=== PATIENT | female | born 1985 | race Caucasian/White ===

== ENCOUNTER → 2021-05-14 | Outpatient (CLI) | payer OTHER ==
--- NOTE | 2021-05-14 13:07 | KCIC ---
EXAMINATION: MRI RIGHT SHOULDER WITHOUT IV CONTRAST CLINICAL HISTORY: Chronic right shoulder pain x1 year. TECHNIQUE: Multiplanar multisequential images obtained through the shoulder without intravenous contr ast. COMPARISON: None FINDINGS: TENDONS: - Supraspinatus: Within normal limits. - Infraspinatus: Within normal limits. - Subscapularis: Low-grade interstitial tearing in the superior fibers near the myotendinous junction . - Teres Minor: Appears grossly intact, but there is peritendinous edema extending proximally to the m yotendinous junction. - Biceps Tendon: Long head biceps tendon intact and appropriately located. MUSCLES: Muscle bulk and signal intensity otherwise within normal limits. LABRUM: Findings most consistent with a prominent superior sublabial sulcus/foramen, however, there i s also a small focus of increased intrinsic signal in the posterior superior labrum at 11:30 position (series 6 image 11, series 5 image 10) which may indicate a component of labral tearing. GLENOHUMERAL JOINT: - Joint Fluid: No joint effusion or synovitis. - Cartilage: Within normal limits. ACROMIOCLAVICULAR JOINT: Within normal limits. BONES/MARROW: No evidence of acute fracture or suspicious marrow replacing process. Subcortical marro w edema/cystic changes at the teres minor insertion, possibly related to chronic reactive changes. IMPRESSION: Low-grade interstitial tearing in the subscapularis tendon and low-grade teres minor myotendinous str ain. No full-thickness rotator cuff tear. Prominent superior sublabial sulcus/foramen with possible superimposed labral tearing as describeddorinda clinically. Electronically signed by: Pablo Lpoez DO (05/14/2021 1:05 PM) [id number]
== END ==
LOC: KCIC MRI 10:43
PROVIDERS: ATTEND Nurse Practitioner Family
DX: S46.011A Strain of muscle(s) and tendon(s) of the rotator cuff of right shoulder, initial encounter (principal); X58.XXXA Exposure to other specified factors, initial encounter; Y93.89 Activity, other specified; Y92.89 Other specified places as the place of occurrence of the external cause; Y99.8 Other external cause status
CPT/HCPCS: 73221

== ENCOUNTER → 2021-07-06 | Outpatient (CLI) | payer OTHER ==
[~2021-07-06] MED LIST: GADOTERATE 5 MMOL/10ML VIAL. INT ART ONE; IOHEXOL 300 MG/ML 50 ML VIAL. INT ART ONE; LIDOCAINE 1% Multi-Dose 20 ML VIAL. ID ONE
--- NOTE | 2021-07-06 16:58 | KCIC ---
EXAM: Right shoulder joint injection WITH Fluoroscopic guidance DATE: 07/06/2021 2:12 PM CLINICAL HISTORY: Reason: RIGHT SHOULDER PAIN COMPARISON: None pertinent TECHNIQUE: The patient was informed of the indications and alternatives for this procedure as well as risks and benefits. No immediate contraindication identified. The patient provided informed, written consent. Laterality was confirmed by the entire team following a time out. Following initial Right shoulder joint localization, a suitable area was sterilely prepped and draped . Local anesthesia was administered with 1% xylocaine. With intermittent fluoroscopic observation, a 22-gauge spinal needle was advanced into the Right shoulder joint sheath/capsule with confirmation of intra-synovial position with infusion of less than 1 cc iodinated contrast. Subsequent infusion 12 c c solution containing 10 cc saline, 5 cc lidocaine 1%, 5 cc Isovue and 0.1 cc gadolinium. Hemostasis with local pressure. Local clinical exam negative for immediate complication. Patient informed re local potential signs or symptoms that may indicate need to return to ER/Ordering physician for further evaluation. Patient informed re precautionary measures after intra-synovial in jection of anesthetic. Patient expressed understanding. Performing Physicians: Dr. Antoine Burkett Blood Loss: 0 cc Total Fluoroscopy time: 5 seconds Total spot images taken: 0 IMPRESSION: Successful intra-synovial injection Right shoulder joint pre-MRI with gadolinium contrast per clinica l request. Electronically signed by: Esteban Burkett MD (07/06/2021 4:56 PM) [id number]
--- NOTE | 2021-07-06 20:15 | KCIC ---
EXAM: MRI arthrogram right shoulder DATE: 07/06/2021 2:12 PM COMPARISON: None INDICATION: Reason: RIGHT SHOULDER PAIN TECHNIQUE: Multiplanar, multisequence MRI arthrogram of the right shoulder was performed following th e administration of intra-articular gadolinium contrast. FINDINGS: Iatrogenic distention of the right glenohumeral joint with gadolinium contrast. Type II acromion. No os acromiale. Subacromial-subdeltoid bursal edema with gadolinium characteristics. There is moderate edema within the teres minor muscle belly with associated edema within the greater tuberosity. No discrete rotator cuff tear is seen. Rotator cuff muscle bulk is normal without fatty a trophy. Contrast extends from the biceps tendon anchor to the posterior labrum/9:00 position. Articular carti magalys is preserved. Long head biceps tendon is intact. No acute fracture or osteonecrosis. IMPRESSION: 1. Labral tear extends from the biceps tendon anchor to the 9:00 position/posterior labrum-SLAP tear . 2. Moderate edema within the teres minor, likely strain. 3. Moderate edema within the greater tuberosity at the teres minor attachment without acute fracture , possibly contusion. 4. Contrast is seen within the subacromial-subdeltoid bursa, possibly from prior from prior surgery or iatrogenic. No full-thickness rotator cuff tear is seen. Electronically signed by: Esteban Burkett MD (07/06/2021 8:12 PM) [id number]
== END | disposition home or self-care (01) ==
LOC: KCIC 13:54
PROVIDERS: ATTEND Physician Assistant Medical
DX: M25.511 Pain in right shoulder (principal); S43.431A Superior glenoid labrum lesion of right shoulder, initial encounter; X58.XXXA Exposure to other specified factors, initial encounter; Y93.89 Activity, other specified; Y92.89 Other specified places as the place of occurrence of the external cause; Y99.8 Other external cause status; Z88.2 Allergy status to sulfonamides; Z79.899 Other long term (current) drug therapy
CPT/HCPCS: 23350; 73222; 77002; A9575; J3490; Q9967